=== PATIENT | female | born 1975 | race Caucasian/White ===

== ENCOUNTER 2016-05-13 11:36 | Emergency (ER) | payer OTHER ==
--- NOTE | 2016-05-13 11:54 | ER Document Report ---
ED Medical Screen (RME) - General Chief Complaint: Eye Pain Stated Complaint: POSSIBLE CONGESTION Time seen by provider: 11:52 Mode of Arrival: Ambulatory Information source: Patient Notes: 40 yo female presents to ed for left eye pain redness and swelling with cough and cold andheadache TRAVEL OUTSIDE OF THE [place] IN LAST 30 DAYS: No COUNTRY TRAVELED TO/FROM: [facility] - [facility] Onset: Yesterday Onset/Duration: Gradual Quality of pain: Burning - itchy feels like rocks Severity: Mild Pain Level: 2 Associated Symptoms: Cough (nonproductive), Nausea, Rhinorrhea, Other - eye pain since yesterday Exacerbated by: Denies Relieved by: Denies Similar symptoms previously: Yes Recently seen / treated by doctor: No - Related Data Smoking: Cigarettes, Less than 1 pack/day Frequency of alcohol use: None Drug Abuse: None Allergies/Adverse Reactions: cephalexin monohydrate [From Keflex] Allergy (Intermediate, Verified 03/27/16 12 :02) Urticaria codeine [Codeine] Allergy (Mild, Verified 03/27/16 12:02) rash Past Medical History - Past Medical History Cardiac Medical History: Reports: Hx Hypertension Denies: Hx Coronary Artery Disease, Hx Heart Attack Pulmonary Medical History: Reports: Hx Asthma Neurological Medical History: Reports: Hx Migraine Endocrine Medical History: Denies: Hx Diabetes Mellitus Type 2, Hx Hypothyroidism GI Medical History: Reports: Hx Gastroesophageal Reflux Disease. Denies: Hx Gastritis Skin Medical History: Denies Hx Cellulitis, Denies Hx MRSA Psychiatric Medical History: Reports: Hx Anxiety Past Surgical History: Reports: Hx Appendectomy - cyst removal, Hx Gynecologic Surgery - partial hysterectomy, 5 years later BSO, Hx Hysterectomy, Hx Tubal Ligation - Immunizations Immunizations up to date: No Hx Diphtheria, Pertussis, Tetanus Vaccination: Yes - 2012
[2016-05-13] MEDS ORDERED: TETRACAINE HCL 0.5% OPH SOLN 2 ML OS ONE (11:55)
--- NOTE | 2016-05-13 12:23 | ER Document Report ---
HPI - HPI Patient complains to provider of: sinus congestion Onset: Last week Onset/Duration: Persistent Quality of pain: Pressure Pain Level: 2 Context: Patient complains of sinus congestion for the past week. Patient states left eye started to become swollen and red yesterday. Patient states when she woke up this morning her eye was matted shut. Patient is concerned that she may have conjunctivitis. Patient denies any fever. Patient denies any use of contact lenses but states she does occasionally wear reading glasses. Patient reports only mild cough. Associated Symptoms: Nonproductive cough, Headache, Rhinnorhea, Sinus pain/ drainage. denies: Earache - Mild, Fever Exacerbated by: Denies Relieved by: Denies Similar symptoms previously: Yes Recently seen / treated by doctor: No - ROS ROS below otherwise negative: Yes Systems Reviewed and Negative: Yes All other systems reviewed and negative - CONSTITUTIONAL Constitutional: DENIES: Fever, Chills - EENT EENT: REPORTS: Nasal Drainage-Clear, Congestion, Eye problems - Left eye redness with mat. DENIES: Sore Throat - NEURO Neurology: REPORTS: Headache - Mild, sinus pressure - RESPIRATORY Respiratory: REPORTS: Coughing. DENIES: Trouble Breathing - GASTROINTESTINAL Gastrointestinal: DENIES: Nausea, Patient vomiting, Diarrhea - REPRODUCTIVE Reproductive: DENIES: : - MUSCULOSKELETAL Musculoskeletal: DENIES: Extremity pain, Back Pain, Neck Pain - DERM Skin Color: Normal Skin Problems: None Past Medical History - General Information source: Patient - Social History Smoking Status: Current Every Day Smoker Frequency of alcohol use: None Drug Abuse: None Occupation: retail Family History: CAD, DM, Hypertension Patient has suicidal ideation: No Patient has homicidal ideation: No - Past Medical History Cardiac Medical History: Reports: Hx Hypertension Denies: Hx Coronary Artery Disease, Hx Heart Attack Pulmonary Medical History: Reports: Hx Asthma Neurological Medical History: Reports: Hx Migraine Endocrine Medical History: Denies: Hx Diabetes Mellitus Type 2, Hx Hypothyroidism GI Medical History: Reports: Hx Gastroesophageal Reflux Disease. Denies: Hx Gastritis Skin Medical History: Denies Hx Cellulitis, Denies Hx MRSA Psychiatric Medical History: Reports: Hx Anxiety Past Surgical History: Reports: Hx Appendectomy - cyst removal, Hx Gynecologic Surgery - partial hysterectomy, 5 years later BSO, Hx Hysterectomy, Hx Tubal Ligation - Immunizations Immunizations up to date: No Hx Diphtheria, Pertussis, Tetanus Vaccination: Yes - 2013 Vertical Provider Document - CONSTITUTIONAL Agree With Documented VS: Yes Exam Limitations: No Limitations General Appearance: WD/WN, No Apparent Distress - INFECTION CONTROL TRAVEL OUTSIDE OF THE [place] IN LAST 30 DAYS: No COUNTRY TRAVELED TO/FROM: [facility] HEENT: Atraumatic, Normocephalic, PERRLA. negative: Pharyngeal Exudate, Pharyngeal Tenderness, Pharyngeal Erythema, Tympanic Membrane Red Notes: clear rhinorrhea, pt with tenderness with palpation of left frontal and maxillary sinus left eye mildly injected, no overt purulent drainage, EOMI, no fluoroscein uptake, no FB, no corneal abrasion, ulcer or dendrite - NECK Neck: Normal Inspection, Supple. negative: Lymphadenopathy-Left, Lymphadenopathy-Right - RESPIRATORY Respiratory: Breath Sounds Normal, No Respiratory Distress, Chest Non-Tender O2 Sat by Pulse Oximetry: 94 - CARDIOVASCULAR Cardiovascular: Regular Rate, Regular Rhythm, No Murmur. negative: Tachycardia Notes: apical pulse 88 - BACK Back: Normal Inspection. negative: CVA Tenderness-Right, CVA Tenderness-Left - MUSCULOSKELETAL/EXTREMETIES Musculoskeletal/Extremeties: CASSIE GODINEZ - NEURO Level of Consciousness: Awake, Alert, Appropriate Motor/Sensory: No Motor Deficit - DERM Integumentary: Warm, Dry, Rash - faint red papular rash to left cheek/left infraorbital area Course - Re-evaluation Re-evalutation: 05/13/16 13:02 discussed with pt concern about possible developing shingles, discussed worsening s/s that pt should return immediately for. Do not suspect any herpetic involvement of eye, but discussed concerns with pt given tender facial rash to left cheek area. Pt advised to return for any worsening of symptoms, eye pain, change in vision or worsening of skin lesions to face. Pt advised to f/u with opthamologist for any worsening/continued problems. Pt verbalized understanding and agrees with plan of care - Vital Signs Vital signs: Temp Pulse Resp BP Pulse Ox 97.9 F 116 H 16 134/75 H 94 05/13/16 11:48 05/13/16 11:48 05/13/16 11:48 05/13/16 11:48 05/13/16 11:48 Discharge - Discharge Clinical Impression: Sinus congestion, Rash of face Conjunctivitis Qualifiers: Conjunctivitis type: unspecified Laterality: left Qualified Code(s): H10.9 - Unspecified conjunctivitis Upper respiratory infection Qualifiers: URI type: unspecified URI Qualified Code(s): J06.9 - Acute upper respiratory infection, unspecified Condition: Stable Disposition: HOME, SELF-CARE Instructions: Upper Respiratory Illness ([facility]), Shingles ([facility]), Acyclovir ([facility]) , Eyedrop Use ([facility]), Conjunctivitis ([facility]) Additional Instructions: Follow up with your primary care provider for a recheck Follow up with opthamologist for any continued eye problems. Return immediately for any new or worsening symptoms. Use saline nasal spray over the counter as directed to help with congestion. Prescriptions: Acyclovir [Zovirax 200 mg Capsule] 800 mg PO Q4H #140 capsule Guaifenesin/Pseudoephedrne HCl [Mucinex D ER Tablet] 1 each PO BID PRN #12 tab.er.12h PRN Reason: Hydrocodone/Acetaminophen [Gardena 5-325 Tablet] 1 each PO Q4 PRN #15 tablet PRN Reason: Polymyxin B Sulfate/Tmp [Polytrim Oph Soln 10 ml] 1 drop LFT_EYE ASDIR #1 bottle Forms: Return to Work Referrals: ANAYELI FAIR PA-C [Primary Care Provider] - Follow up in 3-5 days [facility] [Provider Group] - Follow up as needed [facility] [Provider Group] - Follow up as needed
[2016-05-13 13:43] VITALS: BP 129/81
== END 2016-05-13 13:40 | disposition home or self-care (01) ==
LOC: ER 11:36
DX: J06.9 Acute upper respiratory infection, unspecified (principal); H10.9 Unspecified conjunctivitis; R21 Rash and other nonspecific skin eruption; R09.81 Nasal congestion; R05 Cough; R51 Headache; J34.89 Other specified disorders of nose and nasal sinuses; J45.909 Unspecified asthma, uncomplicated; I10 Essential (primary) hypertension; F17.200 Nicotine dependence, unspecified, uncomplicated
CPT/HCPCS: 99283

== ENCOUNTER 2016-12-02 18:58 | Emergency (ER) | payer OTHER ==
[2016-12-02 21:13] LABS: ABSOLUTE BASOPHILS # (AUTO) 0.1 10^3/uL (0.0-0.2); ABSOLUTE EOSINOPHILS # (AUTO) 0.2 10^3/uL (0.0-0.6); ABSOLUTE LYMPHOCYTES (AUTO) 3.5 10^3/uL (0.5-4.7); ABSOLUTE MONOCYTES (AUTO) 0.5 10^3/uL (0.1-1.4); ABSOLUTE NEUT (AUTO) 4.4 10^3/uL (1.7-8.2); BASOPHILS % (AUTO) 0.7 % (0-2); EOSINOPHILS % (AUTO) 2.8 % (0-6); HEMATOCRIT 39.1 % (36.0-47.0); HEMOGLOBIN 13.2 g/dL (12.0-15.5); HGB HCT DIFFERENCE 0.5; LYMPHOCYTES % (AUTO) 40.2 % (13-45); MEAN CORPUSCULAR HEMOGLOBIN 29.3 pg (27.0-33.4); MEAN CORPUSCULAR HGB CONC 33.7 g/dL (32.0-36.0); MEAN CORPUSCULAR VOLUME 87 fl (80-97); MONOCYTES % (AUTO) 5.8 % (3-13); RED CELL DISTRIBUTION WIDTH 14.3 % (11.5-14.0); SEGMENTED NEUTROPHILS % (AUTO) 50.5 % (42-78); WHITE BLOOD COUNT 8.6 10^3/uL (4.0-10.5)
[2016-12-02 21:23] LABS: ALANINE AMINOTRANSFERASE 30 U/L (9-52); ALBUMIN 4.4 g/dL (3.5-5.0); ALKALINE PHOSPHATASE 90 U/L (38-126); ANION GAP 12 (5-19); ASPARTATE AMINO TRANSFERASE 23 U/L (14-36); BILIRUBIN,DIRECT 0.3 mg/dL (0.0-0.4); BILIRUBIN,TOTAL 0.3 mg/dL (0.2-1.3); BLOOD UREA NITROGEN 16 mg/dL (7-20); CALCIUM 9.6 mg/dL (8.4-10.2); CARBON DIOXIDE 21 mmol/L (22-30); CHLORIDE 107 mmol/L (98-107); CREATININE RESULT 0.67 mg/dL (0.52-1.25); GLUCOSE 85 mg/dL (75-110); LIPASE 115.6 U/L (23-300); POTASSIUM 4.1 mmol/L (3.6-5.0); TOTAL PROTEIN 7.5 g/dL (6.3-8.2)
[2016-12-02 21:57] LABS: APPEARANCE,URINE CLEAR; BILIRUBIN,URINE NEGATIVE (NEGATIVE); GLUCOSE, URINE NEGATIVE (NEGATIVE); KETONES,URINE 20 mg/dL (NEGATIVE); LEUKOCYTE ESTERASE,URINE NEGATIVE (NEGATIVE); NITRITE,URINE NEGATIVE (NEGATIVE); PROTEIN,URINE NEGATIVE (NEGATIVE); URINE SPECIFIC GRAVITY 1.011; UROBILINOGEN,URINE NEGATIVE mg/dL (<2.0)
[2016-12-02] MEDS ORDERED: KETOROLAC TROMETHAMINE INJ/PF 30 MG/1 ML SDV IV ONE (22:11)
[2016-12-02] MEDS ORDERED: LIDOCAINE 5% (700 MG) TRANSDERMAL ADH..PATCH TP ONE (22:11)
--- NOTE | 2016-12-02 22:12 | ER Document Report ---
ED General - General Chief Complaint: Abdominal Pain Stated Complaint: FLANK PAIN Time Seen by Provider: 12/02/16 20:58 Notes: Patient is a 41-year-old female without past medical history, prior hysterectomy who presents with 36 hours of progressively worsening right flank pain right upper abdominal pain. States the pain started in the right flank and then radiated around to her right upper abdomen. Describes as a dull, aching, constant pain. Movement worsens the pain. Nothing improves the pain. Denies any history of similar symptoms in the past. She has not had any associated nausea, vomiting, chest pain or shortness of breath. Denies any trauma to the area. Food does not worsen the pain. She has not seen a primary care doctor regarding today's concerns. TRAVEL OUTSIDE OF THE [place] IN LAST 30 DAYS: No COUNTRY TRAVELED TO/FROM: [facility] - Related Data Allergies/Adverse Reactions: cephalexin monohydrate [From Keflex] Allergy (Intermediate, Verified 12/02/16 19 :06) Urticaria codeine [Codeine] Allergy (Mild, Verified 12/02/16 19:06) rash Past Medical History - General Information source: Patient - Social History Smoking Status: Never Smoker Frequency of alcohol use: None Drug Abuse: None Lives with: Spouse/Significant other Family History: CAD, DM, Hypertension - Past Medical History Cardiac Medical History: Reports: Hx Hypertension Denies: Hx Coronary Artery Disease, Hx Heart Attack Pulmonary Medical History: Reports: Hx Asthma Neurological Medical History: Reports: Hx Migraine Endocrine Medical History: Denies: Hx Diabetes Mellitus Type 2, Hx Hypothyroidism Renal/ Medical History: Denies: Hx Peritoneal Dialysis GI Medical History: Reports: Hx Gastroesophageal Reflux Disease. Denies: Hx Gastritis Skin Medical History: Denies Hx Cellulitis, Denies Hx MRSA Psychiatric Medical History: Reports: Hx Anxiety Past Surgical History: Reports: Hx Appendectomy - cyst removal, Hx Gynecologic Surgery - partial hysterectomy, 5 years later BSO, Hx Hysterectomy, Hx Tubal Ligation - Immunizations Immunizations up to date: No Hx Diphtheria, Pertussis, Tetanus Vaccination: Yes - 2012 Review of Systems - Review of Systems Notes: Constitutional: Negative for fever. HENT: Negative for sore throat. Eyes: Negative for visual changes. Cardiovascular: Negative for chest pain. Respiratory: Negative for shortness of breath. Gastrointestinal: Positive for abdominal pain Genitourinary: Negative for dysuria. Musculoskeletal: Negative for back pain. Skin: Negative for rash. Neurological: Negative for headaches, weakness or numbness. 10 point ROS negative except as marked above and in HPI. Physical Exam - Vital signs Vitals: Temp Pulse Resp BP Pulse Ox 98.2 F 100 16 139/87 H 98 12/02/16 19:06 12/02/16 19:06 12/02/16 19:06 12/02/16 19:06 12/02/16 19:06 Interpretation: Normal Notes: PHYSICAL EXAMINATION: GENERAL: Well-appearing, well-nourished and in no acute distress. HEAD: Atraumatic, normocephalic. EYES: Pupils equal round and reactive to light, extraocular movements intact, sclera anicteric, conjunctiva are normal. ENT: nares patent, oropharynx clear without exudates. Moist mucous membranes. NECK: Normal range of motion, supple without lymphadenopathy LUNGS: Breath sounds clear to auscultation bilaterally and equal. No wheezes rales or rhonchi. HEART: Regular rate and rhythm without murmurs ABDOMEN: Soft, right upper quadrant tenderness to palpation. Right flank tenderness to palpation. No other focal tenderness rebound or guarding. EXTREMITIES: Normal range of motion, no pitting or edema. No cyanosis. NEUROLOGICAL: No focal neurological deficits. Moves all extremities spontaneously and on command. PSYCH: Normal mood, normal affect. SKIN: Warm, Dry, normal turgor, no rashes or lesions noted. Course - Re-evaluation Re-evalutation: 12/02/16 22:12 Patient presents with a one-day history of right flank and right upper abdominal pain. Her abdominal exam does show focal right CVA tenderness as well as right upper quadrant tenderness with a positive Young sign. Laboratories are otherwise unremarkable and her clinical history does not suggest an acute pyelonephritis, nephrolithiasis, bowel obstruction, mesenteric ischemia or acute appendicitis. She has absolutely no lower abdominal tenderness to suggest an acute ovarian pathology or an acute appendicitis. Procedure the right upper quadrant ultrasound, IV pain control and reassessment. 12/02/16 23:27 Right upper quadrant ultrasound is normal without any evidence of acute cholecystitis. Patient's pain is improved after receiving Toradol and a Lidoderm patch. I have had a risks and benefits conversation with the patient regarding CT imaging of the abdomen and pelvis at this time. We discussed, based on today's exam and labs there is a possibility that they could have a diagnosis that could be better clarified by CT and that this could possibly document management technician. We discussed the risks of radiation to the abdomen and pelvis. We discussed the alternative of close follow-up with their primary care physician for a recheck of the abdomen within 24 hours as well as reasons to return to the emergency department. After this conversation, the patient has elected to avoid CT imaging of the abdomen and pelvis at this time. They have capacity. They have verbalized the importance of close follow-up as well as reasons to return to the emergency department including worsening abdominal pain, fever, persistent vomiting, or any other symptoms that are worrisome to them. - Vital Signs Vital signs: Temp Pulse Resp BP Pulse Ox 98.2 F 91 18 112/77 95 12/02/16 19:06 12/02/16 20:09 12/02/16 23:59 12/02/16 23:59 12/02/16 23:59 - Laboratory Result Diagrams: 12/02/16 21:03 12/02/16 21:03 Laboratory results interpreted by me: 12/02/16 12/02/16 12/02/16 21:03 21:03 21:35 RDW 14.3 H Carbon Dioxide 21 L Urine Ketones 20 H Urine Ascorbic Acid 40 H - Diagnostic Test Radiology reviewed: Reports reviewed Discharge - Discharge Clinical Impression: Right upper quadrant abdominal pain Condition: Good Disposition: HOME, SELF-CARE Additional Instructions: You have been seen in the Emergency Department (ED) for abdominal pain. Your evaluation did not identify a clear cause of your symptoms but was generally reassuring. Please follow up with your doctor as soon as possible regarding today's emergent visit and the symptoms that are bothering you. Return to the ED if your abdominal pain worsens or fails to improve, you develop bloody vomiting, bloody diarrhea, you are unable to tolerate fluids due to vomiting, fever greater than 101, or other symptoms that concern you.
--- NOTE | 2016-12-02 23:11 | RADIOLOGY REPORT (SQ) ---
EXAM DESCRIPTION: U/S ABDOMEN LIMITED W/O DOP COMPLETED DATE/TIME: 12/02/2016 10:57 pm REASON FOR STUDY: ruq pain COMPARISON: None. TECHNIQUE: Dynamic and static grayscale images acquired of the right upper quadrant and recorded on PACS. Additional selected color Doppler and spectral images recorded. LIMITATIONS: Study severely limited due to acoustical interference from fat or from air in the bowel . FINDINGS: PANCREAS: Not visualized. LIVER: Echotexture is coarse with increased echogenicity consistent with fatty infiltration. No mass es. LIVER VASCULATURE: Normal directional flow of the main portal vein and hepatic veins. GALLBLADDER: No stones. Normal wall thickness. No pericholecystic fluid. ULTRASOUND-DETECTED FLEMING'S SIGN: Negative. INTRAHEPATIC DUCTS AND COMMON DUCT: CBD and intrahepatic ducts normal caliber. No filling defects. INFERIOR VENA CAVA: Normal flow. AORTA: No aneurysm. RIGHT KIDNEY: Normal size. Normal echogenicity. No solid or suspicious masses. No hydronephrosis. No calcifications. PERITONEAL CAVITY AND RIGHT PLEURAL SPACE: No ascites or effusions. OTHER: No other significant finding. IMPRESSION: LIMITED RIGHT UPPER QUADRANT ULTRASOUND DEMONSTRATING HEPATIC STEATOSIS. NO ACUTE FINDI NGS IDENTIFIED. TECHNICAL DOCUMENTATION: JOB ID: [id number] [employer]- All Rights Reserved
[2016-12-02 23:59] VITALS: BP 112/77
== END 2016-12-02 23:58 | disposition home or self-care (01) ==
LOC: ER 18:58
DX: R10.11 Right upper quadrant pain (principal); I10 Essential (primary) hypertension; J45.909 Unspecified asthma, uncomplicated; Z88.1 Allergy status to other antibiotic agents; Z88.5 Allergy status to narcotic agent; Z87.19 Personal history of other diseases of the digestive system; Z90.711 Acquired absence of uterus with remaining cervical stump; Z98.51 Tubal ligation status
CPT/HCPCS: 99284; 96374; 36415; 83690; 85025; 80053; 81001; 76705; J1885

== ENCOUNTER 2017-12-17 14:02 | Emergency (ER) | payer SELFPAY ==
[2017-12-17] MEDS ORDERED: DIAZEPAM 5 MG TABLET PO ONE (14:54)
--- NOTE | 2017-12-17 15:12 | ER Document Report ---
ED General - General Chief Complaint: Leg Pain Stated Complaint: RIGHT LEG PAIN Time Seen by Provider: 12/17/17 14:53 Mode of Arrival: Ambulatory Information source: Patient Notes: 42-year-old female with hypertension, migraine headaches presents with complaint of right lower extremity pain that started 2 days prior to arrival. Patient describes the pain as cramping, intermittent. She denies any injury to the leg, swelling. She does state that she had a "intense charley horse last night". She does state that she has been doing a lot of moving since having to move in with her [id number]. She denies any history of PE, DVT, recent travel, estrogen use, cancer history or recent surgery. Patient has had prior similar symptoms. She denies any associated shortness of breath. TRAVEL OUTSIDE OF THE [place] IN LAST 30 DAYS: No COUNTRY TRAVELED TO/FROM: [facility] - [facility] Onset: Yesterday Onset/Duration: Gradual, Persistent, Better Quality of pain: Cramping, Throbbing Severity: Mild Associated symptoms: denies: Body/muscle aches, Chest pain, Nonproductive cough , Fever, Leg swelling, Shortness of breath Exacerbated by: Movement, Walking Relieved by: Denies Similar symptoms previously: Yes Recently seen / treated by doctor: No - Related Data Allergies/Adverse Reactions: cephalexin monohydrate [From Keflex] Allergy (Intermediate, Verified 12/02/16 19 :06) Urticaria codeine [Codeine] Allergy (Mild, Verified 12/02/16 19:06) rash Past Medical History - General Information source: Patient, [facility] Records - Social History Smoking Status: Current Every Day Smoker Cigarette use (# per day): Yes - 1ppd Chew tobacco use (# tins/day): No Smoking Education Provided: Yes - 4 minutes of smoking cessation provided to the patient Frequency of alcohol use: Occasional Drug Abuse: None Lives with: Spouse/Significant other Family History: CAD, DM, Hypertension Patient has suicidal ideation: No Patient has homicidal ideation: No - Past Medical History Cardiac Medical History: Reports: Hx Hypertension Denies: Hx Coronary Artery Disease, Hx Heart Attack Pulmonary Medical History: Reports: Hx Asthma Neurological Medical History: Reports: Hx Migraine Endocrine Medical History: Denies: Hx Diabetes Mellitus Type 2, Hx Hypothyroidism Renal/ Medical History: Denies: Hx Peritoneal Dialysis GI Medical History: Reports: Hx Gastroesophageal Reflux Disease. Denies: Hx Gastritis Skin Medical History: Denies Hx Cellulitis, Denies Hx MRSA Psychiatric Medical History: Reports: Hx Anxiety Past Surgical History: Reports: Hx Appendectomy - cyst removal, Hx Gynecologic Surgery - partial hysterectomy, 5 years later BSO, Hx Hysterectomy, Hx Tubal Ligation - Immunizations Immunizations up to date: No Hx Diphtheria, Pertussis, Tetanus Vaccination: Yes - 2012 Review of Systems - Review of Systems Notes: REVIEW OF SYSTEMS: CONSTITUTIONAL : Denies fever, chills, or sweats. Denies recent illness. Denies weight loss, recent hospitalizations. EENT: Denies visual changes, eye pain. Denies nasal or sinus congestion or discharge. Denies sore throat, oral lesions, difficulty swallowing. CARDIOVASCULAR: Denies chest pain. Denies palpitations. Denies lower extremity edema. RESPIRATORY: Denies cough, cold, or chest congestion. Denies shortness of breath, wheezing. GASTROINTESTINAL: Denies abdominal pain or distention. Denies nausea, vomiting , or diarrhea. Denies blood in vomitus, stools, or per rectum. Denies black, tarry stools. Denies constipation. GENITOURINARY: Denies difficulty urinating, painful urination, frequency, blood in urine, or vaginal discharge. MUSCULOSKELETAL: Denies back or neck pain or stiffness. Denies leg swelling. SKIN: Denies rash, lesions or sores. HEMATOLOGIC : Denies easy bruising or bleeding. LYMPHATIC: Denies swollen glands. NEUROLOGICAL: Denies confusion or altered mental status. Denies passing out or loss of consciousness. Denies dizziness or lightheadedness. Denies headache. Denies weakness or paralysis. Denies problems difficulty with ambulation, slurred speech. Denies sensory loss, numbness, or tingling. Denies seizures. PSYCHIATRIC: Denies anxiety or stress. Denies depression, suicidal ideation, or homicidal ideation. Denies visual or auditory hallucinations. Physical Exam - Vital signs Vitals: Temp Pulse Resp BP Pulse Ox 97.9 F 121 H 18 138/80 H 100 12/17/17 14:15 12/17/17 14:15 12/17/17 14:15 12/17/17 14:15 12/17/17 14:15 - Notes Notes: PHYSICAL EXAMINATION: GENERAL: Well-appearing, well-nourished and in no acute distress. HEAD: Atraumatic, normocephalic. EYES: Pupils equal round and reactive to light, extraocular movements intact, conjunctiva are normal. ENT: Nares patent, oropharynx clear without exudates. Moist mucous membranes. NECK: Normal range of motion, supple without lymphadenopathy LUNGS: Breath sounds clear to auscultation bilaterally and equal. No wheezes rales or rhonchi. HEART: Regular rate and rhythm without murmurs ABDOMEN: Soft, nontender, nondistended abdomen. No guarding, no rebound. No masses appreciated. Female : deferred Musculoskeletal: Normal range of motion, no pitting or edema. No cyanosis. Right calf without swelling, tenderness, erythema, warmth. NEUROLOGICAL: Cranial nerves grossly intact. Normal speech, normal gait. Normal sensory, motor exams PSYCH: Normal mood, normal affect. SKIN: Warm, Dry, normal turgor, no rashes or lesions noted. Course - Re-evaluation Re-evalutation: Laboratory 12/17/17 12/17/17 15:40 15:40 D-Dimer 0.56 H Sodium 143.0 Potassium 4.5 Chloride 108 H Carbon Dioxide 18 L Anion Gap 17 BUN 13 Creatinine 0.65 Est GFR ( Amer) > 60 Est GFR (Non-Af Amer) > 60 Glucose 110 Calcium 9.7 Magnesium 1.7 12/17/17 17:53 42-year-old female with hypertension, migraine headaches presents with complaint of right lower extremity pain that started 2 days prior to arrival. Patient describes the pain as cramping, intermittent. She denies any injury to the leg, swelling. She does state that she had a "intense charley horse last night". She does state that she has been doing a lot of moving since having to move in with her [id number]. She denies any history of PE, DVT, recent travel, estrogen use, cancer history or recent surgery. Patient has had prior similar symptoms. She denies any associated shortness of breath. Upon arrival vitals reviewed and within normal limits. Patient initially tachycardic but this resolved without intervention. Patient's right lower extremity exam is within normal limits. There is no swelling, erythema or warmth. Wells score is 0. Patient does have a mildly elevated d-dimer and I did discuss this with her. BMP obtained to assess for electrolyte abnormalities which are absent. She agrees to return if pain persists or she experiences any swelling of the leg for an ultrasound. Tariq wrap provided for the patient. Patient provided the opportunity to ask questions, and express concerns. Discharge instructions discussed. Patient is agreeable with discharge home. Return indications explained and discussed with the patient who displays understanding. Patient encouraged to return to the emergency department immediately with any concerns. 12/17/17 17:54 12/17/17 17:55 - Vital Signs Vital signs: Temp Pulse Resp BP Pulse Ox 97.9 F 101 H 16 124/82 99 12/17/17 14:15 12/17/17 16:40 12/17/17 16:40 12/17/17 16:40 12/17/17 16:40 - Laboratory Result Diagrams: 12/17/17 15:40 Laboratory results interpreted by me: 12/17/17 12/17/17 15:40 15:40 D-Dimer 0.56 H Chloride 108 H Carbon Dioxide 18 L Discharge - Discharge Clinical Impression: Cramps of right lower extremity Condition: Good Disposition: HOME, SELF-CARE Instructions: Leg Cramps ([facility]), Possible Evolving Leg DVT ([facility]) Additional Instructions: Your exam today is not consistent with a clot in your leg. If you continue to experience pain or develop swelling, redness or warmth in that leg please return immediately for ultrasound. Patient provided the opportunity to ask questions, and express concerns. Discharge instructions discussed. Patient is agreeable with discharge home. Return indications explained and discussed with the patient who displays understanding. Patient encouraged to return to the emergency department immediately with any concerns. Prescriptions: Diazepam [Valium] 5 mg PO Q8H PRN #5 tablet PRN Reason: leg cramping Forms: Elevated Blood Pressure, Smoking Cessation Education Referrals: AYE LANEIR MD [Primary Care Provider] - Follow up as needed
[2017-12-17 16:17] LABS: ANION GAP 17 (5-19); BLOOD UREA NITROGEN 13 mg/dL (7-20); CALCIUM 9.7 mg/dL (8.4-10.2); CARBON DIOXIDE 18 mmol/L (22-30); CHLORIDE 108 mmol/L (98-107); GLUCOSE 110 mg/dL (75-110); POTASSIUM 4.5 mmol/L (3.6-5.0)
[2017-12-17 17:05] VITALS: BP 124/82
== END 2017-12-17 16:45 | disposition home or self-care (01) ==
LOC: ER 14:02
DX: R25.2 Cramp and spasm (principal); M79.604 Pain in right leg; I10 Essential (primary) hypertension; F17.210 Nicotine dependence, cigarettes, uncomplicated; J45.909 Unspecified asthma, uncomplicated
CPT/HCPCS: 36415; 80048; 83735; 85379; 99283; 99406

== ENCOUNTER 2017-12-23 16:19 | Emergency (ER) | payer SELFPAY ==
[2017-12-23] MEDS ORDERED: IPRATROPIUM/ALBUTEROL 0.5-2.5 MG/3 ML AMPUL NEB ONE (16:38)
--- NOTE | 2017-12-23 16:40 | ER Document Report ---
ED Medical Screen (RME) - General Chief Complaint: Leg Swelling Stated Complaint: SWOLLEN FEET Time Seen by Provider: 12/23/17 16:37 Mode of Arrival: Ambulatory Information source: Patient Notes: This is a 42-year-old female with a history of asthma, hypertension, migraines who presents to the emergency room with shortness of breath, dyspnea on exertion and pedal edema over the last several days. Patient states she stopped smoking yesterday but has up till now smoked a half pack per day. Patient denies chest pain, fever, productive cough. [facility] physician: Dr. Lanier Occasions: Metoprolol 50 mg XL daily Topamax 25 mg daily TRAVEL OUTSIDE OF THE [place] IN LAST 30 DAYS: No COUNTRY TRAVELED TO/FROM: [facility] - Related Data Allergies/Adverse Reactions: cephalexin monohydrate [From Keflex] Allergy (Intermediate, Verified 12/23/17 16 :19) Urticaria codeine [Codeine] Allergy (Mild, Verified 12/23/17 16:19) rash Past Medical History - Social History Frequency of alcohol use: Rare Drug Abuse: None - Past Medical History Cardiac Medical History: Reports: Hx Hypertension Denies: Hx Coronary Artery Disease, Hx Heart Attack Pulmonary Medical History: Reports: Hx Asthma Neurological Medical History: Reports: Hx Migraine Endocrine Medical History: Denies: Hx Diabetes Mellitus Type 2, Hx Hypothyroidism Renal/ Medical History: Denies: Hx Peritoneal Dialysis GI Medical History: Reports: Hx Gastroesophageal Reflux Disease. Denies: Hx Gastritis Skin Medical History: Denies Hx Cellulitis, Denies Hx MRSA Psychiatric Medical History: Reports: Hx Anxiety Past Surgical History: Reports: Hx Appendectomy - cyst removal, Hx Gynecologic Surgery - partial hysterectomy, 5 years later BSO, Hx Hysterectomy, Hx Tubal Ligation - Immunizations Immunizations up to date: No Hx Diphtheria, Pertussis, Tetanus Vaccination: Yes - 2012 Physical Exam - Vital signs Vitals: Temp Pulse Resp BP Pulse Ox 98.8 F 98 16 123/71 100 12/23/17 16:24 12/23/17 16:24 12/23/17 16:24 12/23/17 16:24 12/23/17 16:24 Course - Vital Signs Vital signs: Temp Pulse Resp BP Pulse Ox 98.8 F 98 16 123/71 100 12/23/17 16:24 12/23/17 16:24 12/23/17 16:24 12/23/17 16:24 12/23/17 16:24 Doctor's Discharge - Discharge Referrals: AYE LANIER MD [Primary Care Provider] - Follow up as needed
--- NOTE | 2017-12-23 17:11 | ER Document Report ---
ED General - General Chief Complaint: Leg Swelling Stated Complaint: SWOLLEN FEET Time Seen by Provider: 12/23/17 16:37 Mode of Arrival: Ambulatory TRAVEL OUTSIDE OF THE [place] IN LAST 30 DAYS: No COUNTRY TRAVELED TO/FROM: [facility] - [facility] Patient complains to provider of: Ankle swelling Onset: Other - 42-year-old female presents for evaluation of swelling in the bilateral ankle which is developed over the last several weeks. Once the past for this and told that she had muscle cramps, she has not used anything try and help with this though when she does prop her legs up she says that the swelling does get better. She has not used anything as far as compression or medications to help. She also notes that she has been having some shortness of breath over the last several months which she attributes to smoking and gaining weight. She notes that after last night eating at [employer] it seems like the ankle swelling was worse than it had been previously. She specifically denies any history of heart failure, heart attack, stroke, emphysema COPD fevers chills cough rashes abdominal pain diarrhea constipation or dysuria. - Related Data Allergies/Adverse Reactions: cephalexin monohydrate [From Keflex] Allergy (Intermediate, Verified 12/23/17 16 :19) Urticaria codeine [Codeine] Allergy (Mild, Verified 12/23/17 16:19) rash Past Medical History - General Information source: Patient - Social History Smoking Status: Current Every Day Smoker Frequency of alcohol use: Rare Drug Abuse: None Family History: CAD, DM, Hypertension Patient has suicidal ideation: No Patient has homicidal ideation: No - Past Medical History Cardiac Medical History: Reports: Hx Hypertension Denies: Hx Coronary Artery Disease, Hx Heart Attack Pulmonary Medical History: Reports: Hx Asthma Neurological Medical History: Reports: Hx Migraine Endocrine Medical History: Denies: Hx Diabetes Mellitus Type 2, Hx Hypothyroidism Renal/ Medical History: Denies: Hx Peritoneal Dialysis GI Medical History: Reports: Hx Gastroesophageal Reflux Disease. Denies: Hx Gastritis Skin Medical History: Denies Hx Cellulitis, Denies Hx MRSA Psychiatric Medical History: Reports: Hx Anxiety Past Surgical History: Reports: Hx Appendectomy - cyst removal, Hx Gynecologic Surgery - partial hysterectomy, 5 years later BSO, Hx Hysterectomy, Hx Tubal Ligation - Immunizations Immunizations up to date: No Hx Diphtheria, Pertussis, Tetanus Vaccination: Yes - 2012 Review of Systems - Review of Systems -: Yes All other systems reviewed and negative Physical Exam - Vital signs Vitals: Temp Pulse Resp BP Pulse Ox 98.8 F 98 16 123/71 100 12/23/17 16:24 12/23/17 16:24 12/23/17 16:24 12/23/17 16:24 12/23/17 16:24 - General General appearance: Appears well In distress: None - HEENT Head: Normocephalic Eyes: Normal Conjunctiva: Normal Cornea: Normal Extraocular movements intact: Yes - Respiratory Respiratory status: No respiratory distress Chest status: Nontender Breath sounds: Wheezing Chest palpation: Normal - Cardiovascular Rhythm: Regular Heart sounds: Normal auscultation Murmur: No - Abdominal Inspection: Normal Distension: No distension Bowel sounds: Normal Tenderness: Nontender - Back Back: Normal - Extremities General upper extremity: Normal inspection Ankle: Edema - +2 at the ankle - Neurological Neuro grossly intact: Yes Cognition: Normal Orientation: AAOx4 [place] Coma Scale Eye Opening: Spontaneous Ben Coma Scale Verbal: Oriented - Psychological Associated symptoms: Normal affect Course - Re-evaluation Re-evalutation: 12/23/17 18:35 42-year-old female presents for evaluation of edema in the ankles bilaterally which has been progressive over time. Notes it is worse after eating a large meal. Has improved when she props her legs up. She is also a long-term smoker and has had some wheezing and shortness of breath that she is increased the amount she has been smoking over the last 2 weeks due to some life stressors. She has used an inhaler once at home which did seem to improve her symptoms. She denies any chest pain tightness hemoptysis or other symptoms. On examination she is well-appearing female with a normal work of breathing, she does have some faint wheezes in the apices of the lungs bilaterally. Lower extremities do demonstrate edema at the level of the ankle and extending proximally without any cellulitic changes overlying. Is likely dependent edema as a result of its improvement with change in posture. Chest x-ray does not demonstrate any obvious infiltrates or pulmonary edema. His negative troponin unchanged EKG and relatively unremarkable laboratory evaluation BNP is modestly elevated, bedside ultrasound demonstrated relatively intact cardiac function with appreciable squeeze. Estimated ejection fraction is greater than 50%. Spoke with this patient at length about the potential for developing worsening symptoms and her need to stop smoking as well as control sodium in her diet. We will plan for this patient to use an inhaler as needed for her possibly undiagnosed COPD. We will give her a water pill to help with her edema bilaterally. Tablet this represents any other more sinister process and underlying cause of shortness of breath including but not limited to PE, RI, or dissection. She is currently PERC negative. Will plan for DC with return precautions and treatment with Lasix as well as albuterol as needed. - Vital Signs Vital signs: Temp Pulse Resp BP Pulse Ox 98.8 F 98 16 123/71 100 12/23/17 16:24 12/23/17 16:24 12/23/17 16:24 12/23/17 16:24 12/23/17 16:24 - Laboratory Result Diagrams: 12/23/17 16:45 12/23/17 16:45 Laboratory results interpreted by me: 12/23/17 12/23/17 12/23/17 16:45 16:45 16:45 RDW 14.2 H Chloride 109 H Carbon Dioxide 20 L NT-Pro-B Natriuret Pep 171 H - EKG Interpretation by Me EKG shows normal: Sinus rhythm - Sinus rhythm, 88 bpm, normal axis, no appreciable ST segment elevation, no appreciable change from previous EKG 2015 Discharge - Discharge Clinical Impression: Wheezing Ankle swelling Qualifiers: Laterality: unspecified laterality Qualified Code(s): M25.473 - Effusion, unspecified ankle Condition: Good Disposition: HOME, SELF-CARE Instructions: Dependent Edema ([facility]) Additional Instructions: You were seen in the emergency department for shortness of breath and ankle swelling. You had an evaluation including a chest x-ray, and blood tests. It is likely that your swelling in the ankles is related to dependent edema. Giving given a water pill to use over the next 7 days to help with this. Sleep with your legs propped up if able, use compression stockings or wraps to help with your swelling. For the wheezing use the inhaler prescribed to you. Return for any worsening chest pain shortness of breath fevers or chills. Prescriptions: Albuterol Sulfate [Proair HFA Inhalation Aerosol 8.5 gm MDI] 2 puff IH Q4H PRN # 1 mdi PRN Reason: Furosemide [Lasix 20 mg Tablet] 20 mg PO DAILY #7 tablet Forms: Smoking Cessation Education Referrals: AYE LANIER MD [Primary Care Provider] - Follow up as needed
[2017-12-23 17:17] LABS: ALANINE AMINOTRANSFERASE 22 U/L (9-52); ALBUMIN 4.2 g/dL (3.5-5.0); ALKALINE PHOSPHATASE 85 U/L (38-126); ANION GAP 13 (5-19); ASPARTATE AMINO TRANSFERASE 21 U/L (14-36); BILIRUBIN,DIRECT 0.2 mg/dL (0.0-0.4); BILIRUBIN,TOTAL 0.2 mg/dL (0.2-1.3); BLOOD UREA NITROGEN 17 mg/dL (7-20); CALCIUM 9.4 mg/dL (8.4-10.2); CARBON DIOXIDE 20 mmol/L (22-30); CHLORIDE 109 mmol/L (98-107); CREATINE KINASE 106 U/L (30-135); GLUCOSE 96 mg/dL (75-110); SODIUM 142.4 mmol/L (137-145); TOTAL PROTEIN 7.1 g/dL (6.3-8.2)
[2017-12-23 17:19] LABS: ABSOLUTE EOSINOPHILS # (AUTO) 0.2 10^3/uL (0.0-0.6); ABSOLUTE LYMPHOCYTES (AUTO) 2.9 10^3/uL (0.5-4.7); ABSOLUTE MONOCYTES (AUTO) 0.5 10^3/uL (0.1-1.4); ABSOLUTE NEUT (AUTO) 4.5 10^3/uL (1.7-8.2); BASOPHILS % (AUTO) 0.4 % (0-2); EOSINOPHILS % (AUTO) 2.7 % (0-6); HEMATOCRIT 37.5 % (36.0-47.0); HEMOGLOBIN 12.5 g/dL (12.0-15.5); LYMPHOCYTES % (AUTO) 35.6 % (13-45); MEAN CORPUSCULAR HEMOGLOBIN 29.1 pg (27.0-33.4); MEAN CORPUSCULAR HGB CONC 33.3 g/dL (32.0-36.0); MEAN CORPUSCULAR VOLUME 87 fl (80-97); MONOCYTES % (AUTO) 6.2 % (3-13); PLATELET COUNT 225 10^3/uL (150-450); RED BLOOD COUNT 4.29 10^6/uL (3.72-5.28); RED CELL DISTRIBUTION WIDTH 14.2 % (11.5-14.0); SEGMENTED NEUTROPHILS % (AUTO) 55.1 % (42-78); TOTAL CELLS COUNTED % (AUTO) 100 %; WHITE BLOOD COUNT 8.2 10^3/uL (4.0-10.5)
[2017-12-23 17:29] LABS: CREATINE KINASE MB 0.69 ng/mL (<4.55)
[2017-12-23 17:30] LABS: TROPONIN I < 0.012 ng/mL
--- NOTE | 2017-12-23 17:37 | RADIOLOGY REPORT (SQ) ---
EXAM DESCRIPTION: CHEST 2 VIEWS COMPLETED DATE/TIME: 12/23/2017 5:30 pm REASON FOR STUDY: sob, pedal edema COMPARISON: 04/11/2016 EXAM PARAMETERS: NUMBER OF VIEWS: two views TECHNIQUE: Digital Frontal and Lateral radiographic views of the chest acquired. RADIATION DOSE: NA LIMITATIONS: none FINDINGS: LUNGS AND PLEURA: No opacities, masses or pneumothorax. No pleural effusion. MEDIASTINUM AND HILAR STRUCTURES: No masses or contour abnormalities. HEART AND VASCULAR STRUCTURES: Heart normal size. No evidence for failure. BONES: No acute findings. HARDWARE: None in the chest. OTHER: No other significant finding. IMPRESSION: NO ACUTE RADIOGRAPHIC FINDING IN THE CHEST. TECHNICAL DOCUMENTATION: JOB ID: [id number] [employer]- All Rights Reserved Reading location - IP/workstation name: [email or web address]
[2017-12-23 18:27] VITALS: BP 104/71
--- NOTE | 2017-12-23 22:51 | EKG REPORT ---
SEVERITY:- NORMAL ECG - SINUS RHYTHM : Confirmed by: Juan Gerber MD 23-Dec-2017 22:50:46
== END 2017-12-23 18:27 | disposition home or self-care (01) ==
LOC: ER 16:19
DX: M25.472 Effusion, left ankle (principal); M25.471 Effusion, right ankle; R60.0 Localized edema; J45.909 Unspecified asthma, uncomplicated; R06.02 Shortness of breath; I10 Essential (primary) hypertension; F17.200 Nicotine dependence, unspecified, uncomplicated; Z88.1 Allergy status to other antibiotic agents; Z88.5 Allergy status to narcotic agent; Z82.49 Family history of ischemic heart disease and other diseases of the circulatory system
CPT/HCPCS: 93005; 94640; 99284; 36415; 82553; 82550; 85025; 80053; 84484; 83880; 71046; 93010; J7620

== ENCOUNTER 2018-06-11 17:03 | Emergency (ER) | payer SELFPAY ==
[2018-06-11] MEDS ORDERED: LOPERAMIDE HCL 2 MG CAPSULE PO ONE (18:12)
--- NOTE | 2018-06-11 18:13 | ER Document Report ---
HPI - HPI Time Seen by Provider: 06/11/18 18:03 Onset: Last week Quality of pain: Achy Pain Level: 3 Context: Patient presents complaining of cough congestion for the past week with some diarrhea. Patient states she has had diarrhea x3 episodes. Patient denies any fever. Patient does complain of sick contacts in the household recently. Associated Symptoms: Body/muscle aches, Nonproductive cough, Diarrhea, Rhinnorhea. denies: Fever, Vomiting, Sore throat Exacerbated by: Denies Relieved by: Denies Similar symptoms previously: Yes Recently seen / treated by doctor: No - ROS ROS below otherwise negative: Yes Systems Reviewed and Negative: Yes All other systems reviewed and negative - CONSTITUTIONAL Constitutional: DENIES: Fever - EENT EENT: REPORTS: Nasal Drainage-Clear, Congestion. DENIES: Sore Throat - CARDIOVASCULAR Cardiovascular: DENIES: Chest pain - RESPIRATORY Respiratory: REPORTS: Coughing - GASTROINTESTINAL Gastrointestinal: REPORTS: Diarrhea. DENIES: Abdominal Pain, Nausea - URINARY Urinary: DENIES: Dysuria - REPRODUCTIVE Reproductive: DENIES: : - DERM Skin Color: Normal Skin Problems: None Past Medical History - General Information source: Patient - Social History Smoking Status: Current Every Day Smoker Smoking Education Provided: Yes Frequency of alcohol use: None Drug Abuse: None Occupation: Warehouse Lives with: Family Family History: CAD, DM, Hypertension Patient has suicidal ideation: No Patient has homicidal ideation: No - Past Medical History Cardiac Medical History: Reports: Hx Hypertension Denies: Hx Coronary Artery Disease, Hx Heart Attack Pulmonary Medical History: Reports: Hx Asthma Neurological Medical History: Reports: Hx Migraine Endocrine Medical History: Denies: Hx Diabetes Mellitus Type 2, Hx Hypothyroidism Renal/ Medical History: Denies: Hx Peritoneal Dialysis GI Medical History: Reports: Hx Gastroesophageal Reflux Disease. Denies: Hx Gastritis Skin Medical History: Denies Hx Cellulitis, Denies Hx MRSA Psychiatric Medical History: Reports: Hx Anxiety Past Surgical History: Reports: Hx Appendectomy - cyst removal, Hx Gynecologic Surgery - partial hysterectomy, 5 years later BSO, Hx Hysterectomy, Hx Tubal Ligation - Immunizations Immunizations up to date: No Hx Diphtheria, Pertussis, Tetanus Vaccination: Yes - 2013 [employer] Provider Document - CONSTITUTIONAL Agree With Documented VS: Yes Exam Limitations: No Limitations General Appearance: WD/WN, No Apparent Distress - INFECTION CONTROL TRAVEL OUTSIDE OF THE [place] IN LAST 30 DAYS: No COUNTRY TRAVELED TO[place]FROM[place] [facility] [place] [facility] HEENT: Atraumatic, Normocephalic. negative: Pharyngeal Exudate, Pharyngeal Tenderness, Pharyngeal Erythema, Tympanic Membrane Red, Tympanic Membrane Bulging - NECK Neck: Normal Inspection, Supple. negative: Lymphadenopathy-Right - RESPIRATORY Respiratory: Breath Sounds Normal, No Respiratory Distress, Chest Non-Tender, Other - dry cough - CARDIOVASCULAR Cardiovascular: Regular Rate, Regular Rhythm, No Murmur - BACK Back: Normal Inspection - MUSCULOSKELETAL/EXTREMETIES Musculoskeletal/Extremeties: CASSIE GODINEZ - NEURO Level of Consciousness: Awake, Alert, Appropriate Motor/Sensory: No Motor Deficit - DERM Integumentary: Warm, Dry, No Rash Course - Re-evaluation Re-evalutation: 06/11/18 19:04 Patient's respirations even unlabored patient nontoxic in appearance. Patient reports that she has had wheezing at home although has not had wheezing here. Patient encouraged to stop smoking. - Vital Signs Vital signs: Temp Pulse Resp BP Pulse Ox 98.0 F 97 20 130/89 H 99 06/11/18 17:09 06/11/18 17:09 06/11/18 17:09 06/11/18 17:09 06/11/18 17:09 - Diagnostic Test Radiology reviewed: Reports reviewed Discharge - Discharge Clinical Impression: Bronchitis Condition: Stable Disposition: HOME, SELF-CARE Additional Instructions: Return immediately for any new or worsening symptoms Followup with your primary care provider, call tomorrow to make a followup appointment BRONCHITIS: You have acute bronchitis. This disease is an infection or inflammation of the air passageways in your lungs. Symptoms usually include cough, low grade fever, shortness of breath, and wheezing. The cough usually persists for a couple of weeks. Most cases of bronchitis get better without antibiotics. We prescribe antibiotics when we believe bacteria are damaging your airways, or if there's high risk the bronchitis will worsen into pneumonia. Increase your fluid intake. A cool mist humidifier may make your lungs more comfortable. An expectorant (cough medicine that loosens phlegm) can help. If you smoke, STOP!!! Recovery from bronchitis can be somewhat slow, but you should see improvement within a day or two. Repeated episodes of bronchitis may result in lung damage -- for example, chronic bronchitis, recurrent pneumonias, or emphysema. Call the doctor if you develop increasing fever, shortness of breath, chest pain, bloody sputum, or otherwise worsen. If you have not improved at all after several days, contact the physician. INHALED BRONCHODILATORS: You have received a treatment of and/or prescription for an inhaled bronchodilator -- a medication which stimulates the airways in the lung to dilate. This improves the flow of air in asthma, bronchitis, and emphysema. These medicines have some similarity to adrenaline, and can cause similar side effects: shakiness, racing heart, and a sense of nervousness. These side effects decrease with time. Contact your doctor if these side effects are severe. Do not over-use the medicine. Too-frequent use of the inhaler may make it ineffective. Call your doctor if the inhaler is not controlling your symptoms at the prescribed doses. STEROID MEDICATION: You have been given an injection of or oral medicine of the cortisone/steroid class. This medication is used to control inflammation or allergy. Aleksandar t is usually only given for a short period of time, until the acute process subsides. There are usually no side effects from short-term use of cortisone-like medications. Some persons feel an increased sense of well-being and are not sleepy at bedtime. Long-term use of cortisone medications is best avoided, unless required for a severe condition. If your condition does not remit, or relapses after the course of corticosteroid medication, you should consult your physician. USE OF ACETAMINOPHEN (Tylenol): Acetaminophen may be taken for pain relief or fever control. It's much safer than aspirin, offering a wider range of "safe" dosages. It is safe during . Some brand names are Tylenol, Panadol, Datril, Anacin 3, Tempra, and Liquiprin. Acetaminophen can be repeated every four hours. The following are maximum recommended dosages: >89 pounds or adults 650 mg to 900 mg Acetaminophen can be repeated every four hours. Maximum dose not to exceed 4000 mg a day. SMOKING: If you smoke, you should stop smoking. The tar and chemicals in cigarette smoke are harmful. Smoking has been shown to cause: emphysema chronic bronchitis lung cancer mouth and throat cancer stomach and pancreas cancer premature aging defects In addition, smoking increases ear and lung infections in children of smokers. FOLLOW-UP CARE: If you have been referred to a physician for follow-up care, call the physicians office for an appointment as you were instructed or within the next two days. If you experience worsening or a significant change in your symptoms, notify the physician immediately or return to the Emergency Department at any time for re-evaluation. Prescriptions: Benzonatate [Tessalon Perle 100 mg Capsule] 100 mg PO Q8HP PRN #20 cap PRN Reason: Albuterol Sulfate [Proair Hfa Inhalation Aerosol 8.5 gm Mdi] 2 puff IH Q4 PRN #1 mdi PRN Reason: Prednisone [Deltasone 10 mg Tablet] 10 mg PO ASDIR PRN #21 tablet PRN Reason: Forms: Smoking Cessation Education, Return to Work Referrals: AYE LANIER MD [Primary Care Provider] - Follow up as needed
[2018-06-11] MEDS ORDERED: IPRATROPIUM/ALBUTEROL 0.5-2.5 MG/3 ML AMPUL NEB ONE (18:15)
--- NOTE | 2018-06-11 18:44 | RADIOLOGY REPORT (SQ) ---
EXAM DESCRIPTION: CHEST 2 VIEWS COMPLETED DATE/TIME: 06/11/2018 6:23 pm REASON FOR STUDY: cough COMPARISON: 12/23/2017. EXAM PARAMETERS: NUMBER OF VIEWS: two views TECHNIQUE: Digital Frontal and Lateral radiographic views of the chest acquired. RADIATION DOSE: NA LIMITATIONS: none FINDINGS: LUNGS AND PLEURA: No opacities, masses or pneumothorax. No pleural effusion. MEDIASTINUM AND HILAR STRUCTURES: No masses or contour abnormalities. HEART AND VASCULAR STRUCTURES: Heart normal size. No evidence for failure. BONES: No acute findings. HARDWARE: None in the chest. OTHER: No other significant finding. IMPRESSION: NO ACUTE RADIOGRAPHIC FINDING IN THE CHEST. TECHNICAL DOCUMENTATION: JOB ID: [id number] [employer]- All Rights Reserved Reading location - IP/workstation name: [email or web address]
[2018-06-11 19:50] VITALS: BP 130/72
== END 2018-06-11 19:54 | disposition home or self-care (01) ==
LOC: ER 17:03
DX: J40 Bronchitis, not specified as acute or chronic (principal); F17.200 Nicotine dependence, unspecified, uncomplicated; I10 Essential (primary) hypertension; Z90.710 Acquired absence of both cervix and uterus
CPT/HCPCS: 94640; 99283; 71046; J7620

== ENCOUNTER 2018-11-19 12:22 | Emergency (ER) | payer BC ==
--- NOTE | 2018-11-19 14:52 | ER Document Report ---
ED Medical Screen (RME) - General Chief Complaint: Urinary Problem Stated Complaint: URINARY ISSUES Time Seen by Provider: 11/19/18 14:50 Primary Care Provider: AYE LANIER MD [Primary Care Provider] - Follow up as needed Mode of Arrival: Ambulatory Information source: Patient Notes: Patient presents to the emergency department with possible UTI. Reports urinary frequency, decreased output, hematuria. Also complains of right flank pain since Monday. Has been taking Azo without relief of symptoms. No other complaints such as fever vomiting diarrhea. I have greeted and performed a rapid initial assessment of this patient. A comprehensive ED assessment and evaluation of the patient, analysis of test results and completion of the medical decision making process will be conducted by additional ED providers. Dictation of this chart was performed using voice recognition software; therefore, there may be some unintended grammatical errors. TRAVEL OUTSIDE OF THE [place] IN LAST 30 DAYS: No COUNTRY TRAVELED TO/FROM: [facility] - Related Data Allergies/Adverse Reactions: cephalexin monohydrate [From Keflex] Allergy (Intermediate, Verified 11/19/18 12:45) Urticaria codeine [Codeine] Allergy (Mild, Verified 11/19/18 12:45) rash Past Medical History - Past Medical History Cardiac Medical History: Reports: Hx Hypertension Denies: Hx Coronary Artery Disease, Hx Heart Attack Pulmonary Medical History: Reports: Hx Asthma Neurological Medical History: Reports: Hx Migraine Endocrine Medical History: Denies: Hx Diabetes Mellitus Type 2, Hx Hypothyroidism Renal/ Medical History: Denies: Hx Peritoneal Dialysis GI Medical History: Reports: Hx Gastroesophageal Reflux Disease. Denies: Hx Gastritis Skin Medical History: Denies Hx Cellulitis, Denies Hx MRSA Psychiatric Medical History: Reports: Hx Anxiety Past Surgical History: Reports: Hx Appendectomy - cyst removal, Hx Gynecologic Surgery - partial hysterectomy, 5 years later BSO, Hx Hysterectomy, Hx Tubal Ligation - Immunizations Immunizations up to date: No Hx Diphtheria, Pertussis, Tetanus Vaccination: Yes - 2012 Physical Exam - Vital signs Vitals: Temp Pulse Resp BP Pulse Ox 98.0 F 95 18 96/74 L 95 11/19/18 13:29 11/19/18 13:29 11/19/18 13:29 11/19/18 13:29 11/19/18 13:29 Course - Vital Signs Vital signs: Temp Pulse Resp BP Pulse Ox 98.0 F 95 18 96/74 L 95 11/19/18 13:29 11/19/18 13:29 11/19/18 13:29 11/19/18 13:29 11/19/18 13:29 Doctor's Discharge - Discharge Referrals: AYE LANIER MD [Primary Care Provider] - Follow up as needed
[2018-11-19 15:50] LABS: ABSOLUTE BASOPHILS # (AUTO) 0.1 10^3/uL (0.0-0.2); ABSOLUTE EOSINOPHILS # (AUTO) 0.2 10^3/uL (0.0-0.6); ABSOLUTE LYMPHOCYTES (AUTO) 3.1 10^3/uL (0.5-4.7); ABSOLUTE MONOCYTES (AUTO) 0.3 10^3/uL (0.1-1.4); ABSOLUTE NEUT (AUTO) 4.1 10^3/uL (1.7-8.2); BASOPHILS % (AUTO) 1.1 % (0-2); EOSINOPHILS % (AUTO) 2.8 % (0-6); HEMATOCRIT 42.3 % (36.0-47.0); HEMOGLOBIN 14.1 g/dL (12.0-15.5); LYMPHOCYTES % (AUTO) 39.8 % (13-45); MEAN CORPUSCULAR HEMOGLOBIN 28.8 pg (27.0-33.4); MEAN CORPUSCULAR HGB CONC 33.3 g/dL (32.0-36.0); MEAN CORPUSCULAR VOLUME 87 fl (80-97); MONOCYTES % (AUTO) 4.2 % (3-13); PLATELET COUNT 236 10^3/uL (150-450); RED BLOOD COUNT 4.88 10^6/uL (3.72-5.28); SEGMENTED NEUTROPHILS % (AUTO) 52.1 % (42-78); TOTAL CELLS COUNTED % (AUTO) 100 %; WHITE BLOOD COUNT 7.9 10^3/uL (4.0-10.5)
[2018-11-19 16:17] LABS: ALANINE AMINOTRANSFERASE 24 U/L (9-52); ALBUMIN 4.8 g/dL (3.5-5.0); ALKALINE PHOSPHATASE 110 U/L (38-126); ANION GAP 10 (5-19); ASPARTATE AMINO TRANSFERASE 25 U/L (14-36); BILIRUBIN,DIRECT 0.3 mg/dL (0.0-0.4); BILIRUBIN,TOTAL 0.4 mg/dL (0.2-1.3); BLOOD UREA NITROGEN 8 mg/dL (7-20); CALCIUM 9.9 mg/dL (8.4-10.2); CARBON DIOXIDE 25 mmol/L (22-30); CHLORIDE 106 mmol/L (98-107); GLUCOSE 90 mg/dL (75-110); POTASSIUM 4.5 mmol/L (3.6-5.0); SODIUM 141.3 mmol/L (137-145); TOTAL PROTEIN 7.8 g/dL (6.3-8.2)
[2018-11-19 16:25] LABS: APPEARANCE,URINE SLIGHTLY-CLOUDY; BILIRUBIN,URINE NEGATIVE (NEGATIVE); COLOR,URINE YELLOW; GLUCOSE, URINE NEGATIVE (NEGATIVE); KETONES,URINE NEGATIVE (NEGATIVE); LEUKOCYTE ESTERASE,URINE TRACE (NEGATIVE); NITRITE,URINE NEGATIVE (NEGATIVE); PROTEIN,URINE NEGATIVE (NEGATIVE); URINE SPECIFIC GRAVITY 1.013; UROBILINOGEN,URINE NEGATIVE mg/dL (<2.0)
[2018-11-19] MEDS ORDERED: PHENAZOPYRIDINE HCL 200 MG TABLET PO ONE (17:31)
--- NOTE | 2018-11-19 17:32 | ER Document Report ---
HPI - HPI Patient complains to provider of: dysuria Time Seen by Provider: 11/19/18 14:50 Onset: Other Onset/Duration: Persistent Quality of pain: Pressure Severity: Severe Pain Level: 4 Context: Patient presents to the emergency department with possible UTI. Reports urinary frequency, decreased output, hematuria. Also complains of right flank pain since Monday. Has been taking Azo without relief of symptoms. No other complaints such as fever vomiting diarrhea. Associated Symptoms: None Exacerbated by: Denies Relieved by: Denies Similar symptoms previously: Yes Recently seen / treated by doctor: No - REPRODUCTIVE Reproductive: DENIES: : Past Medical History - General Information source: Patient - Social History Smoking Status: Unknown if Ever Smoked Cigarette use (# per day): No Frequency of alcohol use: None Drug Abuse: None Family History: CAD, DM, Hypertension Patient has suicidal ideation: No Patient has homicidal ideation: No - Past Medical History Cardiac Medical History: Reports: Hx Hypertension Denies: Hx Coronary Artery Disease, Hx Heart Attack Pulmonary Medical History: Reports: Hx Asthma Neurological Medical History: Reports: Hx Migraine Endocrine Medical History: Denies: Hx Diabetes Mellitus Type 2, Hx Hypothyroidism Renal/ Medical History: Denies: Hx Peritoneal Dialysis GI Medical History: Reports: Hx Gastroesophageal Reflux Disease. Denies: Hx Gastritis Skin Medical History: Denies Hx Cellulitis, Denies Hx MRSA Psychiatric Medical History: Reports: Hx Anxiety Past Surgical History: Reports: Hx Appendectomy - cyst removal, Hx Gynecologic Surgery - partial hysterectomy, 5 years later BSO, Hx Hysterectomy, Hx Tubal Ligation - Immunizations Immunizations up to date: No Hx Diphtheria, Pertussis, Tetanus Vaccination: Yes - 2013 [facility] Provider Document - CONSTITUTIONAL Agree With Documented VS: Yes Exam Limitations: No Limitations General Appearance: WD/WN, No Apparent Distress - nontoxic looking - INFECTION CONTROL TRAVEL OUTSIDE OF THE [place] IN LAST 30 DAYS: No [facility] HEENT: Atraumatic, Normocephalic - NECK Neck: Supple - RESPIRATORY Respiratory: Breath Sounds Normal, No Respiratory Distress - CARDIOVASCULAR Cardiovascular: Regular Rate, Regular Rhythm - GI/ABDOMEN Gastrointestinal: Abdomen Soft, Abdomen Non-Tender - BACK Back: Normal Inspection. negative: CVA Tenderness-Right, CVA Tenderness-Left - MUSCULOSKELETAL/EXTREMETIES Musculoskeletal/Extremeties: CASSIE GODINEZ - NEURO Level of Consciousness: Awake, Alert, Appropriate Motor/Sensory: No Motor Deficit - DERM Integumentary: Warm, Dry Course - Re-evaluation Re-evalutation: 11/19/18 17:36 She presents emergency department with complaints of urinary frequency and pressure when she voids. CBC unremarkable urine with some leukocytes we will treat her for UTI based on her symptoms. She is instructed on medication instructed to follow-up with primary care provider for recheck within 1 week she verbalized understanding. Dictation of this chart was performed using voice recognition software; therefore, there may be some unintended grammatical errors. - Vital Signs Vital signs: Temp Pulse Resp BP Pulse Ox 98.0 F 95 18 96/74 L 95 11/19/18 13:29 11/19/18 13:29 11/19/18 13:29 11/19/18 13:29 11/19/18 13:29 - Laboratory Result Diagrams: 11/19/18 15:33 11/19/18 15:33 Laboratory results interpreted by me: 11/19/18 11/19/18 15:33 15:33 RDW 15.0 H Ur Leukocyte Esterase TRACE H Discharge - Discharge Clinical Impression: Dysuria UTI (urinary tract infection) Qualifiers: Urinary tract infection type: site unspecified Hematuria presence: without hematuria Qualified Code(s): N39.0 - Urinary tract infection, site not specified Condition: Stable Disposition: HOME, SELF-CARE Instructions: Nitrofurantoin ([facility]), Urinary Anesthetic Agent ([facility]), Urinary Tract Infection ([facility]) Additional Instructions: *You have been evaluated for pain while voiding, UTI *Take medication as prescribed *Push fluids *Follow up with your primary care provider within one week *Plan urine recheck in one week *Return to ED for worsening condition, changes, needs Prescriptions: Nitrofurantoin/Nitrofuran Mac [Macrobid 100 mg Capsule] 100 mg PO BID #20 capsule Phenazopyridine HCl [Pyridium 200 mg Tablet] 200 mg PO TID #15 tablet Referrals: AYE LANIER MD [Primary Care Provider] - Follow up in 1 week
[2018-11-19 17:53] VITALS: BP 129/77
== END 2018-11-19 17:50 | disposition home or self-care (01) ==
LOC: ER 12:22
DX: N39.0 Urinary tract infection, site not specified (principal); R30.0 Dysuria; R35.0 Frequency of micturition; R33.9 Retention of urine, unspecified; R31.9 Hematuria, unspecified; R10.9 Unspecified abdominal pain; I10 Essential (primary) hypertension; J45.909 Unspecified asthma, uncomplicated
CPT/HCPCS: 99283; 36415; 87086; 85025; 81025; 87088; 80053; 81001; 87186; J3490

== ENCOUNTER 2019-10-22 17:47 | Emergency (ER) | payer BC ==
[2019-10-22] MEDS ORDERED: ASPIRIN 81 MG TABLET, CHEWABLE PO ONE (19:00)
--- NOTE | 2019-10-22 19:02 | ER Document Report ---
ED Medical Screen (RME) - General Chief Complaint: Chest Pain Stated Complaint: CHEST PRESSURE Time Seen by Provider: 10/22/19 18:56 Primary Care Provider: ANTONY MEHTA PA-C [Primary Care Provider] - Follow up as needed Notes: HPI: 43-year-old female presenting for evaluation of chest and back pain. Patient began having thoracic back pain yesterday that she states was sharp in nature but did not change with position or movement. Today coming home from work she developed a heavy sensation over the anterior chest with nausea. Feels like the discomfort does seem to radiate into the back. Does not radiate into the neck or down the arms. No prior history of similar discomfort. States she did have a stress test approximately 8 years ago. Patient does have history of hypertension. Denies abdominal pain PHYSICAL EXAMINATION: No pain in the epigastric and right upper quadrant on palpation. Regular rate and rhythm, lung sounds are clear to auscultation. EKG normal sinus rhythm without ST elevation or ectopy I have greeted and performed a rapid initial assessment of this patient. A comprehensive ED assessment and evaluation of the patient, analysis of test results and completion of medical decision making process will be conducted by an additional ED providers. TRAVEL OUTSIDE OF THE [place] IN LAST 30 DAYS: No - Related Data Allergies/Adverse Reactions: cephalexin monohydrate [From Keflex] Allergy (Intermediate, Verified 11/19/18 12:45) Urticaria codeine [Codeine] Allergy (Mild, Verified 11/19/18 12:45) rash Past Medical History - Social History Frequency of alcohol use: Occasional Drug Abuse: None - Past Medical History Cardiac Medical History: Reports: Hx Hypertension Denies: Hx Coronary Artery Disease, Hx Heart Attack Pulmonary Medical History: Reports: Hx Asthma Neurological Medical History: Reports: Hx Migraine Endocrine Medical History: Denies: Hx Diabetes Mellitus Type 2, Hx Hypothyroidism Renal/ Medical History: Denies: Hx Peritoneal Dialysis GI Medical History: Reports: Hx Gastroesophageal Reflux Disease. Denies: Hx Gastritis Skin Medical History: Denies Hx Cellulitis, Denies Hx MRSA Psychiatric Medical History: Reports: Hx Anxiety Past Surgical History: Reports: Hx Appendectomy - cyst removal, Hx Gynecologic Surgery - partial hysterectomy, 5 years later BSO, Hx Hysterectomy, Hx Tubal Ligation - Immunizations Immunizations up to date: No Hx Diphtheria, Pertussis, Tetanus Vaccination: Yes - 2012 Physical Exam - Vital signs Vitals: Temp Pulse Resp BP Pulse Ox 98.9 F 85 20 121/79 98 10/22/19 18:01 10/22/19 18:01 10/22/19 18:01 10/22/19 18:01 10/22/19 18:01 Course - Vital Signs Vital signs: Temp Pulse Resp BP Pulse Ox 98.9 F 85 20 121/79 98 10/22/19 18:57 10/22/19 18:01 10/22/19 18:01 10/22/19 18:01 10/22/19 18:01 Doctor's Discharge - Discharge Referrals: ATNONY MEHTA PA-C [Primary Care Provider] - Follow up as needed
--- NOTE | 2019-10-22 19:19 | RADIOLOGY REPORT (SQ) ---
EXAM DESCRIPTION: CHEST SINGLE VIEW IMAGES COMPLETED DATE/TIME: 10/22/2019 7:11 pm REASON FOR STUDY: chest pain COMPARISON: 08/25/2018 EXAM PARAMETERS: NUMBER OF VIEWS: One view. TECHNIQUE: Single frontal radiographic view of the chest acquired. RADIATION DOSE: NA LIMITATIONS: None. FINDINGS: LUNGS AND PLEURA: No opacities, masses or pneumothorax. No pleural effusion. MEDIASTINUM AND HILAR STRUCTURES: No masses. Contour normal. HEART AND VASCULAR STRUCTURES: Heart normal in size. Normal vasculature. BONES: No acute findings. HARDWARE: None in the chest. OTHER: No other significant finding. IMPRESSION: 1. No significant interval changes since the prior study dated 06/11/2018. No acute find ings. TECHNICAL DOCUMENTATION: JOB ID: [id number] [employer]- All Rights Reserved Reading location - IP/workstation name: [email or web address]
[2019-10-22 19:31] LABS: ABSOLUTE BASOPHILS # (AUTO) 0.1 10^3/uL (0.0-0.2); ABSOLUTE EOSINOPHILS # (AUTO) 0.2 10^3/uL (0.0-0.6); ABSOLUTE LYMPHOCYTES (AUTO) 3.7 10^3/uL (0.5-4.7); ABSOLUTE MONOCYTES (AUTO) 0.6 10^3/uL (0.1-1.4); ABSOLUTE NEUT (AUTO) 4.5 10^3/uL (1.7-8.2); BASOPHILS % (AUTO) 0.8 % (0-2); EOSINOPHILS % (AUTO) 2.7 % (0-6); HEMATOCRIT 40.3 % (36.0-47.0); LYMPHOCYTES % (AUTO) 40.9 % (13-45); MEAN CORPUSCULAR HEMOGLOBIN 30.2 pg (27.0-33.4); MEAN CORPUSCULAR HGB CONC 34.8 g/dL (32.0-36.0); MEAN CORPUSCULAR VOLUME 87 fl (80-97); MONOCYTES % (AUTO) 6.1 % (3-13); PLATELET COUNT 258 10^3/uL (150-450); RED BLOOD COUNT 4.64 10^6/uL (3.72-5.28); RED CELL DISTRIBUTION WIDTH 14.4 % (11.5-14.0); SEGMENTED NEUTROPHILS % (AUTO) 49.5 % (42-78); TOTAL CELLS COUNTED % (AUTO) 100 %; WHITE BLOOD COUNT 9.1 10^3/uL (4.0-10.5)
[2019-10-22 19:53] LABS: ALBUMIN 4.8 g/dL (3.5-5.0); ALKALINE PHOSPHATASE 94 U/L (38-126); ANION GAP 10 (5-19); ASPARTATE AMINO TRANSFERASE 30 U/L (14-36); BILIRUBIN,TOTAL 0.3 mg/dL (0.2-1.3); BLOOD UREA NITROGEN 13 mg/dL (7-20); CALCIUM 10.6 mg/dL (8.4-10.2); CARBON DIOXIDE 23 mmol/L (22-30); CHLORIDE 105 mmol/L (98-107); CREATINE KINASE 97 U/L (30-135); GLUCOSE 99 mg/dL (75-110); POTASSIUM 4.7 mmol/L (3.6-5.0); TOTAL PROTEIN 7.7 g/dL (6.3-8.2)
--- NOTE | 2019-10-22 20:05 | EKG REPORT ---
SEVERITY:- NORMAL ECG - SINUS RHYTHM : Confirmed by: Juan Gerber MD 22-Oct-2019 20:04:54
--- NOTE | 2019-10-22 22:27 | ER Document Report ---
ED Cardiac - General Chief Complaint: Chest Pain Stated Complaint: CHEST PRESSURE Time Seen by Provider: 10/22/19 18:56 Primary Care Provider: TIM TREVINO MD [ACTIVE STAFF] - 10/23/19 Notes: Patient is a 43-year-old female that comes emergency department for chief complaint of pain in her mid upper back that radiates around to the front of her chest on both sides. She states that 2 days ago she was weed eating and she thinks this might be related, however she was driving home from work today and she developed shooting pains and then a heavy sensation in her back along with her chest. She states she started "panicking" and she started feeling tingling in her upper chest and face but this quickly resolved. She states she does have some pain with range of motion, she denies current tightness in the chest, she denies current dizziness or tingling sensation, she denies shortness of breath. She denies impact injury, fever, focal numbness or weakness, or any other complaints. She has a history of hypertension, she smokes, she does have a positive family history of CO (father). She had a negative stress test about 8 years ago. TRAVEL OUTSIDE OF THE [place] IN LAST 30 DAYS: No - Related Data Allergies/Adverse Reactions: cephalexin monohydrate [From Keflex] Allergy (Intermediate, Verified 11/19/18 12:45) Urticaria codeine [Codeine] Allergy (Mild, Verified 11/19/18 12:45) rash Past Medical History - General Information source: Patient - Social History Smoking Status: Current Every Day Smoker Smoking Education Provided: Yes - <3 min Frequency of alcohol use: Occasional Drug Abuse: None Lives with: Family Family History: CAD, DM, Hypertension Patient has homicidal ideation: No - Past Medical History Cardiac Medical History: Reports: Hx Hypertension Denies: Hx Coronary Artery Disease, Hx Heart Attack Pulmonary Medical History: Reports: Hx Asthma Neurological Medical History: Reports: Hx Migraine Endocrine Medical History: Denies: Hx Diabetes Mellitus Type 2, Hx Hypothyroidism Renal/ Medical History: Denies: Hx Peritoneal Dialysis GI Medical History: Reports: Hx Gastroesophageal Reflux Disease. Denies: Hx Gastritis Skin Medical History: Denies Hx Cellulitis, Denies Hx MRSA Psychiatric Medical History: Reports: Hx Anxiety Past Surgical History: Reports: Hx Appendectomy - cyst removal, Hx Gynecologic Surgery - partial hysterectomy, 5 years later BSO, Hx Hysterectomy, Hx Tubal Ligation - Immunizations Immunizations up to date: No Hx Diphtheria, Pertussis, Tetanus Vaccination: Yes - 2012 Review of Systems - Review of Systems Constitutional: No symptoms reported EENT: No symptoms reported Cardiovascular: See HPI Respiratory: No symptoms reported Gastrointestinal: No symptoms reported Genitourinary: No symptoms reported Female Genitourinary: No symptoms reported Musculoskeletal: See HPI Skin: No symptoms reported Hematologic/Lymphatic: No symptoms reported Neurological/Psychological: See HPI Physical Exam - Vital signs Vitals: Temp Pulse Resp BP Pulse Ox 98.9 F 85 20 121/79 98 10/22/19 18:01 10/22/19 18:01 10/22/19 18:01 10/22/19 18:01 10/22/19 18:01 - Notes Notes: GENERAL: Alert, interacts well. No acute distress. HEAD: Normocephalic, atraumatic. EYES: Pupils equal, round, and reactive to light. Extraocular movements intact. ENT: Oral mucosa moist, tongue midline. Oropharynx unremarkable. Airway patent. NECK: Full range of motion. Supple. Trachea midline. No lymphadenopathy. LUNGS: Clear to auscultation bilaterally, no wheezes, rales, or rhonchi. No respiratory distress. No specific point tenderness over the chest. No signs of trauma. HEART: Regular rate and rhythm. No murmur ABDOMEN: Soft, non-tender. Non-distended. EXTREMITIES: Moves all 4 extremities spontaneously. No edema, normal radial and dorsalis pedis pulses bilaterally. No cyanosis. BACK: There is tenderness over the lower paracervical and upper parathoracic musculature especially on the left for you can feel tight rigid muscles spasms. No signs of trauma. No cervical, thoracic, lumbar midline tenderness. No saddle anesthesia, normal distal neurovascular exam. Moves all extremities in full range of motion. NEUROLOGICAL: Alert and oriented x3. Normal speech. Cranial nerves II through XII grossly intact. Strength 5/5 in all extremities. PSYCH: Normal affect, normal mood. SKIN: Warm, dry, normal turgor. No rashes or lesions noted. Course - Re-evaluation Re-evalutation: Patient with very specific palpable tight muscles specifically in the left upper back after weed eating. She does not have the current chest radiations or discomfort, she does not have any current symptoms. Based on her exam and history I feel this is most likely musculoskeletal. EKG unremarkable with no ischemic findings, troponin negative and will be cycled, CBC, chemistry unremarkable, patient has had a full hysterectomy. Patient's heart score is 2 (risk factors of smoking, family history, hypertension). Discussed smoking cessation. Discussed treatment options. Patient will follow close with cardiology because of her history but she will be discharged because of her low heart score, reassuring work-up, most likely musculoskeletal cause. Discussed treatments, follow-up, and return cautions in detail. Patient states appreciation and agreement with plan. Stable and well- appearing at time of discharge. - Vital Signs Vital signs: Temp Pulse Resp BP Pulse Ox 97.8 F 68 18 123/81 98 10/22/19 22:53 10/22/19 22:53 10/22/19 22:53 10/22/19 22:53 10/22/19 22:53 - Laboratory Result Diagrams: 10/22/19 19:18 10/22/19 19:18 Laboratory results interpreted by me: 10/22/19 10/22/19 19:18 19:18 RDW 14.4 H Calcium 10.6 H Discharge - Discharge Clinical Impression: Upper back pain Chest pain Qualifiers: Chest pain type: unspecified Qualified Code(s): R07.9 - Chest pain, unspecified Condition: Stable Disposition: HOME, SELF-CARE Additional Instructions: Your work-up at this time is reassuring. Based on your history, exam, and work- up I believe your symptoms are musculoskeletal, from muscle strain and spasm of your chest/upper back. Recommend heat especially to your upper back, the muscle x-rays prescribed, [id number] anti-inflammatories if needed. Symptoms sh ould simply resolve with time. Because of your significant family history I also recommend that you follow closely with a cardiology referral, call their history of referral for follow-up and additional management. Return if you worsen including severe worsening pain, vomiting, difficulty breathing, passing out, fever, or any other concerning symptoms Prescriptions: Methocarbamol [Robaxin-750] 750 mg PO QID PRN #20 tablet PRN Reason: Forms: Smoking Cessation Education Referrals: TIM TREVINO MD [ACTIVE STAFF] - 10/23/19
[2019-10-22 22:54] VITALS: BP 123/81
[2019-10-22] MEDS ORDERED: DIAZEPAM 5 MG TABLET PO ONE (22:54)
== END 2019-10-22 23:02 | disposition home or self-care (01) ==
LOC: ER 17:47
DX: R07.89 Other chest pain (principal); M62.830 Muscle spasm of back; M54.9 Dorsalgia, unspecified; I10 Essential (primary) hypertension; F17.200 Nicotine dependence, unspecified, uncomplicated; J45.909 Unspecified asthma, uncomplicated; Z82.49 Family history of ischemic heart disease and other diseases of the circulatory system; Z88.1 Allergy status to other antibiotic agents; Z88.6 Allergy status to analgesic agent; Z88.5 Allergy status to narcotic agent
CPT/HCPCS: 36415; 71045; 80053; 82550; 84484; 85025; 93005; 93010; 99285

== ENCOUNTER 2020-04-18 18:26 | Emergency (ER) | payer BC ==
[2020-04-18 18:39] VITALS: BP 121/66
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
[2020-04-18 19:10] LABS: ABSOLUTE BASOPHILS # (AUTO) 0.1 10^3/uL (0.0-0.2); ABSOLUTE EOSINOPHILS # (AUTO) 0.3 10^3/uL (0.0-0.6); ABSOLUTE LYMPHOCYTES (AUTO) 4.3 10^3/uL (0.5-4.7); ABSOLUTE MONOCYTES (AUTO) 0.7 10^3/uL (0.1-1.4); ABSOLUTE NEUT (AUTO) 5.3 10^3/uL (1.7-8.2); BASOPHILS % (AUTO) 0.7 % (0-2); EOSINOPHILS % (AUTO) 2.7 % (0-6); HEMATOCRIT 39.1 % (36.0-47.0); HEMOGLOBIN 13.5 g/dL (12.0-15.5); LYMPHOCYTES % (AUTO) 40.2 % (13-45); MEAN CORPUSCULAR HEMOGLOBIN 29.9 pg (27.0-33.4); MEAN CORPUSCULAR HGB CONC 34.6 g/dL (32.0-36.0); MEAN CORPUSCULAR VOLUME 87 fl (80-97); MONOCYTES % (AUTO) 6.5 % (3-13); PLATELET COUNT 263 10^3/uL (150-450); RED BLOOD COUNT 4.52 10^6/uL (3.72-5.28); RED CELL DISTRIBUTION WIDTH 13.8 % (11.5-14.0); SEGMENTED NEUTROPHILS % (AUTO) 49.9 % (42-78); TOTAL CELLS COUNTED % (AUTO) 100 %; WHITE BLOOD COUNT 10.6 10^3/uL (4.0-10.5)
[2020-04-18 19:32] LABS: ALBUMIN 4.6 g/dL (3.5-5.0); ALKALINE PHOSPHATASE 98 U/L (38-126); ANION GAP 11 (5-19); ASPARTATE AMINO TRANSFERASE 26 U/L (14-36); BILIRUBIN,DIRECT 0.3 mg/dL (0.0-0.4); BILIRUBIN,TOTAL 0.4 mg/dL (0.2-1.3); BLOOD UREA NITROGEN 10 mg/dL (7-20); CALCIUM 10.1 mg/dL (8.4-10.2); CARBON DIOXIDE 22 mmol/L (22-30); CHLORIDE 108 mmol/L (98-107); CREATINE KINASE 104 U/L (30-135); GLUCOSE 99 mg/dL (75-110); POTASSIUM 4.2 mmol/L (3.6-5.0); TOTAL PROTEIN 7.8 g/dL (6.3-8.2)
[2020-04-18 19:39] LABS: CREATINE KINASE MB 0.72 ng/mL (<4.55)
[2020-04-18 19:43] LABS: TROPONIN I < 0.012 ng/mL
--- NOTE | 2020-04-18 20:28 | RADIOLOGY REPORT (SQ) ---
EXAM DESCRIPTION: XR CHEST 1 VIEW COMPLETED DATE/TME: 04/18/2020 20:12 CLINICAL HISTORY: 44 years, Female, chest pain Comparison: None FINDINGS: No focal lung consolidation. No pleural effusion. No pneumothorax. Cardiac and mediastinal silhouette is unremarkable. No acute osseous abnormality. Soft tissues are unremarkable. IMPRESSION: No acute findings. No focal lung consolidation.
--- NOTE | 2020-04-20 00:21 | EKG REPORT ---
SEVERITY:- NORMAL ECG - SINUS RHYTHM : Confirmed by: Kiya Hannah 20-Apr-2020 00:20:35
== END 2020-04-18 21:59 | disposition left against medical advice (07) ==
LOC: ER 18:26
DX: R07.89 Other chest pain (principal); M54.9 Dorsalgia, unspecified; I10 Essential (primary) hypertension; J45.909 Unspecified asthma, uncomplicated; F41.9 Anxiety disorder, unspecified; F32.9 Major depressive disorder, single episode, unspecified; Z53.20 Procedure and treatment not carried out because of patient's decision for unspecified reasons; Z88.1 Allergy status to other antibiotic agents; Z88.6 Allergy status to analgesic agent; Z88.5 Allergy status to narcotic agent
CPT/HCPCS: 36415; 71045; 80053; 82550; 82553; 84484; 85025; 93005; 93010; 99281